=== PATIENT | male | born 1995 | race Caucasian/White ===

== ENCOUNTER 2017-04-23 14:09 | Emergency (ER) | payer BC ==
[2017-04-23 14:55] VITALS: BP 138/71
--- NOTE | 2017-04-23 15:18 | ED ---
Respiratory - HPI Summary HPI Summary: 21 yr old male with 24 hours of myalgias, chills, runny nose, sore throat, cough. he is a [employer] student and feels like he has the flu. Many on campus have influenza now. - History of Current Complaint Chief Complaint: UCRespiratory Stated Complaint: FLU SYMPTOMS Time Seen by Provider: 04/23/17 15:07 Pain Intensity: 6 - Allergy/Home Medications Allergies/Adverse Reactions: Allergies Allergy/AdvReac Type Severity Reaction Status Date / Time No Known Allergies Allergy Verified 04/23/17 14:55 Home Medications: Home Medications Ibuprofen 800 mg PO 04/23/17 [History] PMH/Surg Hx/FS Hx/Imm Hx - Surgical History Surgery Procedure, Year, and Place: elbow Infectious Disease History: No Infectious Disease History: Denies: Traveled Outside the [place] in Last 30 Days - Family History Known Family History: Positive: None - Social History Occupation: Student Lives: Dormitory/Roommates Alcohol Use: Weekly Substance Use Type: Reports: Marijuana Substance Use Comment - Amount & Last Used: weekly Smoking Status (MU): Never Smoked Tobacco Review of Systems Positive: Fever, Chills Positive: Sore Throat, Nasal Discharge Positive: Cough All Other Systems Reviewed And Are Negative: Yes Physical Exam Triage Information Reviewed: Yes Vital Signs On Initial Exam: Initial Vitals Temp Pulse Resp BP Pulse Ox 100.1 F 102 18 138/71 98 04/23/17 14:52 04/23/17 14:52 04/23/17 14:52 04/23/17 14:52 04/23/17 14:52 Vital Signs Reviewed: Yes Appearance: Positive: Well-Appearing, No Pain Distress Skin: Positive: Warm, Skin Color Reflects Adequate Perfusion Head/Face: Positive: Normal Head/Face Inspection Eyes: Positive: EOMI ENT: Positive: Nasal congestion, Nasal drainage, TMs normal Neck: Positive: Supple, Nontender Respiratory/Lung Sounds: Positive: Clear to Auscultation, Breath Sounds Present Cardiovascular: Positive: RRR. Negative: Murmur Abdomen Description: Positive: Nontender Musculoskeletal: Positive: Strength/ROM Intact Neurological: Positive: Sensory/Motor Intact, Alert, Oriented to Person Place, Time, CN Intact II-III Psychiatric: Positive: Normal - [place] Coma Scale Best Eye Response: 4 - Spontaneous Best Motor Response: 6 - Obeys Commands Best Verbal Response: 5 - Oriented Coma Scale Total: 15 Diagnostics - Vital Signs Vital Signs Temp Pulse Resp BP Pulse Ox 04/23/17 14:52 100.1 F 102 18 138/71 98 - Laboratory Lab Statement: Any lab studies that have been ordered have been reviewed, and results considered in the medical decision making process. Disposition - Course Course Of Treatment: 21 yr old male flu negative but many ill exposures with flu. He is only one day into this illness. Will cover with tamiflu. - Diagnoses Provider Diagnoses: Influenza, Upper respiratory infection Discharge - Discharge Plan Condition: Good Disposition: HOME Prescriptions: Oseltamivir CAP* [Tamiflu CAP*] 75 mg PO BID #10 cap Patient Education Materials: Upper Respiratory Infection (ED), Influenza (ED) Referrals: Non Staff,Doctor [Primary Care Provider] - [facility] [Outside] [facility] [Outside]
== END 2017-04-23 15:29 | disposition home or self-care (01) ==
LOC: UCCORT 14:09
DX: J11.1 Influenza due to unidentified influenza virus with other respiratory manifestations (principal)
CPT/HCPCS: 87502; 99202; G0463

== ENCOUNTER 2017-12-03 11:12 | Emergency (ER) | payer BC ==
[2017-12-03 12:06] VITALS: BP 150/79
--- NOTE | 2017-12-03 12:28 | UC ---
General HPI - HPI Summary HPI Summary: Patient is complaining of two-week history of sinus congestion with postnasal drip and cough. He also notes that his ears have been plugged and he states that his symptoms subsequently got much worse over the past 2 days. He has prior history of sinus infections and notes that this feels the same. He's been treating with DayQuil with no relief. He has no associated shortness of breath, wheezing or fever. - History of Current Complaint Chief Complaint: UCRespiratory Stated Complaint: SINUS COMPLAINT Time Seen by Provider: 12/03/17 12:22 Hx Obtained From: Patient Onset/Duration: Gradual Onset Timing: Constant Pain Intensity: 0 Alleviating: Nothing Associated Signs & Symptoms: Positive: Cough, Headache. Negative: Syncope, Wheezing - Allergy/Home Medications Allergies/Adverse Reactions: Allergies Allergy/AdvReac Type Severity Reaction Status Date / Time No Known Allergies Allergy Verified 12/03/17 12:06 Home Medications: Home Medications D-Methorphan/PE/Acetaminophen [Cold/Flu Relief] 1 liq PO ONCE PRN 12/03/17 [ History Confirmed 12/03/17] PMH/Surg Hx/FS Hx/Imm Hx - Additional Past Medical History Additional PMH: Sinusitis - Surgical History Surgical History: Yes Surgery Procedure, Year, and Place: R elbow - Family History Known Family History: Positive: None - Social History Occupation: Student Lives: Dormitory/Roommates Alcohol Use: Weekly Substance Use Type: Marijuana Substance Use Comment - Amount & Last Used: weekly and nicotine Smoking Status (MU): Never Smoked Tobacco - Immunization History Hx Tetanus, Diphtheria Vaccination: Yes Vaccination Up to Date: Yes Review of Systems Constitutional: Negative Skin: Negative Eyes: Negative ENT: Ear Ache, Nasal Discharge, Sinus Congestion, Sinus Pain/Tenderness Respiratory: Cough Cardiovascular: Negative Gastrointestinal: Negative Genitourinary: Negative Motor: Negative Neurovascular: Negative Musculoskeletal: Negative Neurological: Headache Psychological: Negative Is Patient Immunocompromised?: No All Other Systems Reviewed And Are Negative: Yes Physical Exam Triage Information Reviewed: Yes Appearance: Well-Appearing Vital Signs: Initial Vital Signs Temp 98.6 F 12/03/17 12:00 Pulse 62 12/03/17 12:00 Resp 16 12/03/17 12:00 BP 150/79 12/03/17 12:00 Pulse Ox 100 12/03/17 12:00 Vital Signs Reviewed: Yes Eyes: Positive: Conjunctiva Clear ENT: Positive: Pharynx normal, Nasal congestion, TMs normal, Sinus tenderness. Negative: Nasal drainage Neck: Positive: Supple, Nontender, No Lymphadenopathy Respiratory: Positive: Lungs clear, Normal breath sounds Cardiovascular: Positive: RRR, No Murmur Abdomen Description: Positive: Nontender, No Organomegaly, Soft Bowel Sounds: Positive: Present Musculoskeletal: Positive: ROM Intact Neurological: Positive: Alert Psychological: Positive: Age Appropriate Behavior Skin Exam: Normal Course/Dx - Course Course Of Treatment: Of induration and abrupt worsening plus failed OTC treatment, patient is going to be treated for bacterial sinusitis. I'm going to treat him with Augmentin but also suggested he consider decongestant as well as nasal steroid spray such as Flonase or Nasacort. He did have mild elevation in his blood pressure during the visit. He does not have history of hypertension. I believe his blood pressure is combination of visit related and illness related. He will have BP recheck on follow-up. - Differential Dx - Multi-Symptom Provider Diagnoses: Sinusitis Discharge - Sign-Out/Discharge Documenting (check all that apply): Patient Departure All imaging exams completed and their final reports reviewed: No Studies - Discharge Plan Condition: Stable Disposition: HOME Prescriptions: Amoxicillin/Clavulanate TAB* [Augmentin TAB 875*] 875 mg PO BID 10 Days #20 tab Patient Education Materials: Sinusitis (ED) Forms: *School Release Referrals: [facility] [Outside] - 7 Days Additional Instructions: Consider starting a decongestant such as Sudafed per label instructions and adding a nasal steroid such as Flonase or Nasacort per label instructions. - Billing Disposition and Condition Condition: STABLE Disposition: Home
== END 2017-12-03 12:34 | disposition home or self-care (01) ==
LOC: UCCORT 11:12
DX: J32.9 Chronic sinusitis, unspecified (principal)
CPT/HCPCS: 99212; G0463

== ENCOUNTER 2018-06-09 10:50 | Emergency (ER) | payer BC ==
[2018-06-09 12:13] VITALS: BP 138/70
[2018-06-09] MEDS ORDERED: Fluorescein Sodium TOPICAL* 1 MG TEST STRIP OPHTHALMIC ONE (12:37)
--- NOTE | 2018-06-09 12:44 | UC ---
Eye Complaint HPI - HPI Summary HPI Summary: pt noted a foreign body sensation in his L eye yesterday. he flushed it with water afterwards, the eye felt dry. today the eye is red and has a discharge. no contact use. + itch. - History of Current Complaint Chief Complaint: UCEye Stated Complaint: LEFT EYE CONCERN Time Seen by Provider: 06/09/18 12:36 Hx Obtained From: Patient Onset/Duration: Gradual Onset Timing: Constant Pain Intensity: 0 Aggravating Factor(s): Nothing Alleviating Factor(s): Nothing Associated Signs And Symptoms: Negative: Photophobia, Vision Impairment Bilateral, Fever, Swelling - Allergies/Home Medications Allergies/Adverse Reactions: Allergies Allergy/AdvReac Type Severity Reaction Status Date / Time No Known Allergies Allergy Verified 12/03/17 12:06 PMH/Surg Hx/FS Hx/Imm Hx Previously Healthy: Yes - Surgical History Surgical History: Yes Surgery Procedure, Year, and Place: R elbow - Family History Known Family History: Positive: None - Social History Occupation: Student Alcohol Use: Weekly Substance Use Type: Marijuana Substance Use Comment - Amount & Last Used: weekly and nicotine Smoking Status (MU): Never Smoked Tobacco - Immunization History Hx Tetanus, Diphtheria Vaccination: Yes Vaccination Up to Date: Yes Review of Systems All Other Systems Reviewed And Are Negative: Yes Constitutional: Negative: Fever Skin: Negative: Rash Eyes: Positive: Drainage, Eye Redness. Negative: Blurred Vision, Diplopia, Photophobia Neurological: Negative: Headache Physical Exam Triage Information Reviewed: Yes Appearance: Well-Appearing Vital Signs: Initial Vital Signs Temp 98.1 F 06/09/18 12:09 Pulse 63 06/09/18 12:09 Resp 16 06/09/18 12:09 BP 138/70 06/09/18 12:09 Pulse Ox 100 06/09/18 12:09 Vital Signs Reviewed: Yes Eyes: Positive: Other: - No auricular adenoapthy. No periorbital edema or rash. Conjunctiva R clear & L is injected with some crusting on lashes. PERRL, EOMI. AC's clear. L Lids everted and no FB's. Stain L eye and no abrasions, ulcerations or dendrites. ENT: Positive: Pharynx normal, TMs normal. Negative: Nasal congestion, Nasal drainage Neck: Positive: Supple, Nontender, No Lymphadenopathy Respiratory: Positive: No respiratory distress Cardiovascular: Positive: RRR Musculoskeletal: Positive: ROM Intact Neurological: Positive: Alert Psychological: Positive: Age Appropriate Behavior Skin Exam: Normal Eye Complaint Course/Dx - Differential Dx/Diagnosis Provider Diagnosis: Conjunctivitis Discharge - Sign-Out/Discharge Documenting (check all that apply): Patient Departure All imaging exams completed and their final reports reviewed: No Studies - Discharge Plan Condition: Stable Disposition: HOME Prescriptions: Polymyx/Trimethoprim OPTH* [Polytrim OPHTH*] 1 drop LEFT EYE Q3H 7 Days #1 btl Patient Education Materials: Conjunctivitis (ED) Referrals: Alondra Ovalles MD [Medical Doctor] - Additional Instructions: follow up ophthalmology if not better in 5 days or sooner if worse. - Billing Disposition and Condition Condition: STABLE Disposition: Home
== END 2018-06-09 13:25 | disposition home or self-care (01) ==
LOC: UCCORT 10:50
DX: H10.9 Unspecified conjunctivitis (principal)
CPT/HCPCS: 99212; A9270-GY; G0463